=== PATIENT | male | born 1990 | race Caucasian/White ===

== ENCOUNTER 2017-12-21 07:56 | Emergency (ER) | payer OTHER ==
--- NOTE | 2017-12-21 09:06 | EDM.PDOC ---
ED HPI GENERAL MEDICAL PROBLEM - General Chief Complaint: ENT Problem Stated Complaint: BLEEDING POST TONSILLECTOMY Time Seen by Provider: 12/21/17 08:53 Source of Information: Reports: Patient, Family, RN Notes Reviewed History Limitations: Reports: No Limitations - History of Present Illness INITIAL COMMENTS - FREE TEXT/NARRATIVE: 27-year-old gentleman presents to the emergency department today with complaint of bleeding from the back of his throat, he recently had tonsillectomy on 08 December did well unfortunately this morning did cough up some clots with blood was initially evaluated in the emergency department at 4 AM bleeding was stopped at that time returns to the emergency department today for ongoing bleeding. He denies any other symptoms - Related Data Allergies Allergy/AdvReac Type Severity Reaction Status Date / Time azithromycin [From Zithromax] Allergy Cannot Verified 12/21/17 08:13 Remember Penicillins Allergy Cannot Verified 12/21/17 08:13 Remember sulfamethoxazole Allergy Cannot Verified 12/21/17 08:13 [From Bactrim] Remember trimethoprim [From Bactrim] Allergy Cannot Verified 12/21/17 08:13 Remember Home Meds: Home Meds Acetaminophen/oxyCODONE [Percocet 325-5 MG] 1 each PO Q6H PRN 12/21/17 [History] Past Medical History - Past Surgical History HEENT Surgical History: Reports: Adenoidectomy, Tonsillectomy Social & Family History - Tobacco Use Smoking Status *Q: Never Smoker - Caffeine Use Caffeine Use: Reports: Coffee, Soda - Recreational Drug Use Recreational Drug Use: No ED ROS ENT - Review of Systems Review Of Systems: See Below Constitutional: Reports: No Symptoms HEENT: Reports: Other (Bleeding from postoperative site) Respiratory: Reports: No Symptoms Cardiovascular: Reports: No Symptoms GI/Abdominal: Reports: No Symptoms : Reports: No Symptoms ED EXAM, ENT - Physical Exam Exam: See Below Exam Limited By: No Limitations General Appearance: Alert, WD/WN, No Apparent Distress Eye Exam: Bilateral Eye: Normal Inspection Nose: Normal Inspection, Normal Mucousa, No Blood Mouth/Throat: Normal Inspection, Normal Gums, Normal Lips, Normal Teeth, Bleeding (Bruising from postoperative site right side), Pharyngeal Erythema Head: Atraumatic, Normocephalic Neck: Normal Inspection, Supple, Non-Tender, Full Range of Motion Respiratory/Chest: No Respiratory Distress, Lungs Clear, Normal Breath Sounds, No Accessory Muscle Use Cardiovascular: Regular Rate, Rhythm, No Murmur Course - Vital Signs Last Recorded V/S: Last Vital Signs Temp 96 F 12/21/17 08:18 Pulse 85 12/21/17 08:18 Resp 13 12/21/17 08:18 BP 120/80 12/21/17 08:18 Pulse Ox 97 12/21/17 08:18 - Orders/Labs/Meds Labs: Laboratory Tests 12/21/17 Range/Units 07:58 Hgb 14.9 (12.0-15.0) g/dL Departure - Departure Time of Disposition: 09:16 Disposition: Home, Self-Care 01 Condition: Fair Clinical Impression: Post-op bleeding Qualifiers: Laterality: right - Discharge Information Referrals: PCP,None [Primary Care Provider] - Forms: ED Department Discharge Additional Instructions: Please return to your ear nose and throat physician, call or return to the emergency department with worsening of symptoms - Assessment/Plan Plan: Assessment Acuity = acute Site and laterality = postoperative site bleeding Etiology = secondary to tonsillectomy 10 days Manifestations = none Location of injury = Home Lab values = hemoglobin 14.9 Plan After further discussion with them and they did consult with their ear nose and throat they going to return to [facility] site of the surgical intervention for further evaluation by the ear nose and throat physician This note was dictated using [employer] voice recognition software please call with any questions on syntax or grammar.
== END 2017-12-21 09:28 | disposition home or self-care (01) ==
LOC: JP.ED 07:56
DX: J95.830 Postprocedural hemorrhage of a respiratory system organ or structure following a respiratory system procedure (principal); Z88.0 Allergy status to penicillin; Z88.1 Allergy status to other antibiotic agents; Z88.2 Allergy status to sulfonamides
CPT/HCPCS: 36415; 85018; 99284